=== PATIENT | male | born 1960 | race Caucasian/White ===

== ENCOUNTER 2020-04-02 11:04 | Outpatient (CLI) | payer OTHER, SELFPAY ==
--- NOTE | 2020-04-02 10:19 | DI.RAD_ITS ---
EXAM: XR HIP RT COMPLETE AP PELVIS CLINICAL HISTORY: right hip pain TECHNIQUE: COMPARISON: CR LEFT HIP COMPLETE POST REDUC from 04/14/2014 FINDINGS: Two views were obtained. The cartilaginous joint spaces of the hips may be minimally narrowed bilate rally. There is slight subchondral sclerosis of the superior acetabula E bilaterally and there is mi nimal marginal osteophyte [place] of the acetabula. The femoral heads are normal in appearance . IMPRESSION: Mild DJD both hips. No other specific findings RADIATION DOSE DELIVERED: Total DLP
== END 2020-04-02 11:24 ==
PROVIDERS: PCP Family Medicine; Referring Provider Family Medicine; Visit Provider Physician Assistant
DX: M16.0 Bilateral primary osteoarthritis of hip (principal)
CPT/HCPCS: 73502

== ENCOUNTER 2021-02-24 03:07 | Outpatient (CLI) | payer OTHER, SELFPAY ==
[2021-02-24 11:05] LABS: Source Nasal/Nares
[2021-02-24 13:11] LABS: COVID-19 PCR Negative (Negative)
== END 2021-02-24 03:08 | disposition home or self-care (01) ==
LOC: LBO 03:07
PROVIDERS: PCP Family Medicine; Visit Provider Surgery
DX: Z20.822 Contact with and (suspected) exposure to COVID-19 (principal)
CPT/HCPCS: 87635

== ENCOUNTER 2021-02-26 07:08 | Day surgery (SDC) | payer OTHER, SELFPAY ==
--- NOTE | 2021-02-25 15:53 | W.COLOREPORT ---
Colonoscopy Report Date of procedure: 02/26/21 Pre-op diagnosis general: crc screen Post-op diagnosis procedure note: same Surgeon: Jenelle Iyer Anesthesia Type: General:No Airway Estimated blood loss (mL): 0 Pathology: none sent Complications: None Disposition: same day Prep: Miralax/Dulcolax Retraction Time: 7 Procedure Description: After informed consent was obtained the patient was taken to the procedure room and placed in a left decubitous position. Monitors were applied and a time out was done. The patients name, date of , procedure, allergies to medications and metal in their body was reviewed. The patient was then sedated. Once sedated and comfortable a rectal exam was done. External exam was normal. Internal exam revealed a normal sphincter tone and no palpable masses. The scope was then introduced and retrofelexed. No internal hemorrhoids were identified. The scope was then advanced to the cecum w/out difficulty. The TI and appendiceal orifice were identified. The prep was good. The scope was then slowly retracted over 7 minutes back into the rectum. There are no polyps, AVMs, or diverticula visualized today. This is an essentially normal exam today. The scope was removed and the patient was woken up and taken back to Same day surgery in stable condition. The patient tolerated the procedure well and there were no immediate complications. Follow up: The patient should follow up in 10 years unless they develop changes in bowel habits or other new gastrointestinal complaints.
--- NOTE | 2021-02-25 15:54 | PDOC.DSDIS_ITS ---
Discharge Plan Disposition Patient Disposition: HOME Condition: Stable Discharge Details Reason For Visit: colon scope Attending Provider: Jenelle Iyer Primary Care Provider: Rene Gregorio Home Meds and New Rx's Prescriptions: Continued lisinopril 20 mg tablet 20 mg PO DAILY RF: 0 diclofenac sodium 75 mg tablet,delayed release (DR/EC) 75 mg PO BID RF: 0 simvastatin 20 mg tablet 20 mg PO DAILY RF: 0 sildenafil [Viagra] 50 mg tablet 50 mg PO DAILY PRNRF: 0 aspirin [Aspir-81] 81 MG tablet,delayed release (DR/EC) 81 mg PO DAILY RF: 0 metoprolol tartrate 100 MG tablet 100 mg PO DAILY RF: 0 Discontinued polyethylene glycol 3350 17 gram/dose powder 238 g PO ONCE Qty: 238 RF: 0 bisacodyl [Dulcolax (bisacodyl)] 5 mg tablet,delayed release (DR/EC) 5 mg PO ONCE Qty: 4 RF: 0 Discharge Instructions Additional Instructions: DSU Colonoscopy Post- Op Instructions Instructions for Everyone who is given Anesthesia: For your safety, please do the following for the next twenty-four (24) hours: *Do Not operate a motor vehicle (car, truck, motorcycle, etc.) *Do Not drink alcoholic beverages or use any recreational drugs for the first 24 hours or while taking pain medications. The medications in your body may have a reaction that can be dangerous. *Do Not make any important decisions or sign any important papers. Findings: normal Follow up:repeat in 10 yrs time, unless you develop changes in bowel habits, rectal bleeding that lasts for more than 2 weeks, unexplained weight loss or other new gastrointestinal complaints. 1. No lifting over 20 pounds or strenuous activity for the first 24 hours after your procedure. After 24 hours there are no restrictions on your activity but you may feel fatigued for a few days. 2. After you arrive home you may have a light meal and return to your normal diet as you can tolerate it without feeling sick to your stomach. 3. You may have a bloated, gaseous feeling in your belly (abdomen) after a colonoscopy. Passing gas and belching will help. Walking or lying down on your left side with your knees flexed may relieve the discomfort. Call the office at [phone] (Office) or [phone] (Hospital) right away if you notice any of the following: a.Vomiting of blood or ?coffee ground stools?. b.Rectal bleeding 1Tbsp, blood clots or continuous bleeding. c.Severe belly (abdominal) pain. d.A hard distended belly (abdomen) and an inability to pass gas. 4. Please don?t expect to have a normal BM (bowel movement) for 2-3 days after your procedure. 5. If there are questions regarding the findings of your procedure, please contact your doctor 6. If you are unable to contact your doctor with a problem, contact the hospital at [phone]. 7. Continue all your regular medications unless directed otherwise. I understand the above instructions and have no questions. Signature of Patient or Adult Escort Name of Responsible Adult Escort Signature of Nurse Date/Time Activity:: see above Diet:: see above Discharge Orders Discharge Orders: Discharge Order (Routine); Ordered 02/25/21 Ordered By: Jenelle Iyer
[2021-02-26 07:20] VITALS: BP 171/107; PULSE 97; RESP 18; TEMP 36.1; O2SAT 94
--- NOTE | 2021-02-26 07:45 | ANES.PREOP_ITS ---
General Info Date of Service Date Performed: 02/26/21 Height: 5 ft 10 in Weight: 118.841 kg Body Mass Index (BMI): 37.5 Surgical Procedure: Operation Date: 02/26/21 08:35 Proposed Procedures Side Surgeon beverley Iyer, Meds Allergies and Home Medications Allergies Allergy/AdvReac Type Severity Reaction Status Date / Time codeine [Codeine] Allergy Intermediate hallucinate Unverified 02/24/21 14:10 s Home Medication Medication Instructions Recorded aspirin [Aspir 81] 81 mg PO DAILY 08/03/12 metoprolol tartrate 100 mg PO DAILY 08/03/12 diclofenac sodium 75 mg 75 mg PO BID 10/14/20 tablet,delayed release lisinopril 20 mg tablet 20 mg PO DAILY 10/14/20 sildenafil 50 mg tablet 50 mg PO DAILY PRN 10/14/20 simvastatin 20 mg tablet 20 mg PO DAILY 10/14/20 bisacodyl 5 mg tablet,delayed 5 mg PO ONCE #4 tab 02/12/21 release polyethylene glycol 3350 17 238 g PO ONCE #238 g 02/12/21 gram/dose oral powder Current Visit Medications: Current Medications Generic Name Dose Route Start Last Admin Trade Name Freq PRN Reason Stop Dose Admin Hyoscyamine Sulfate 0.125 mg 02/25/21 10:56 Hyoscyamine 0.125 Mg Sl/Oral/Chew SL DIRECTED PRN Ringer's Solution 1,000 mls @ 80 mls/hr 02/26/21 06:00 IV 03/27/21 23:59 INFUSION [facility] IV Miscellaneous Supplies 1 each 02/26/21 06:00 Iv Access IV 03/27/21 23:59 DIRECTED RENEE Ondansetron HCl 4 mg 02/25/21 10:56 Ondansetron 4 Mg/2 Ml Vial IVP Q4H PRN PRN Nausea / Vomiting Sodium Chloride 0 ml 02/26/21 06:00 Normal Saline Flush 10 Ml Syr IV 03/27/21 23:59 PRN PRN Sodium Chloride 0 ml 02/26/21 06:00 Normal Saline 10 Ml Vial IJ 03/27/21 23:59 DIRECTED PRN Sterile Water 0 ml 02/26/21 06:00 Water,Injection,Sterile 10 Ml Vial IJ 03/27/21 23:59 DIRECTED PRN PFSH Active Problems Active Problems: Problem Status Onset Code 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 Medical History Medical History Bilateral tinnitus Depressive disorder 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 Hyperlipidemia Impotence Obesity Polymyalgia rheumatica Primary gout Secondary polycythemia Surgical History Surgical History (Updated 02/26/21 @ 07:33 by Tiffanie Yang) Hx of colonoscopy Tobacco Smoking/Tobacco Use Status: Never Alcohol Alcohol Intake: current Alcohol intake frequency: a few times a week Alcohol type: beer and hard liquor Substance Use Substance use: Never Substance use type: does not use Vital Signs and Lab Results Vital Signs Most Recent Vital Signs in EMR: Most Recent Vital Signs Temp Pulse Resp BP Pulse Ox 36.1 C L 97 H 18 171/107 H 94 02/26/21 07:20 02/26/21 07:20 02/26/21 07:20 02/26/21 07:20 02/26/21 07:20 Lab Results Blood Type / Crossmatch: No Data to Display Complete Blood Count: No Data to Display Complete Metabolic Panel: No Data to Display Liver Function Panel: No Data to Display Coagulation Panel: No Data to Display Cardiac Panel: No Data to Display Arterial Blood Gas: No Data to Display Venous Blood Gas: No Data to Display Pancreas Panel: No Data to Display Thyroid Panel: No Data to Display Infectious Disease: Coronavirus (COVID-19)(PCR) Negative (Negative) 02/24/21 08:46 02/24/21 Coronavirus 2019 Source Nasal/Nares 02/24/21 08:46 02/24/21 Blood Cultures: No Data to Display Toxicology Panel: No Data to Display Imaging and Studies Imaging and Studies Stress Test Summary: COMMENTS/RECOMMENDATION: Exercise capacity was fair (7METS) Hypertensive prior to stress. Hypertensive blood pressure response during stress. Hypertensive during recovery returning to pretest readings. Normal heart rate response to stress. Normal heart rate recovery. [place] Treadmill Score 6. Low risk. IMPRESSION: Negative for ischemia after maximal exercise. Wyatt Blsis M.D., Ph.D. CHANTELL/jignesh 04/30/2014 Anesthesia Assessment and Plan Anesthesia History Personal History: No History of Anesthesia Complications Family History: No Family History of Anesthesia Complications Exercise Tolerance Exercise Tolerance: Metabolic Equivalents>4 Pertinent Negatives Pertinent Negatives: No Symptoms of GERD, No Major Cardiovascular Symptoms or Complaints, No Major Pulmonary Symptoms or Complaints and No History of CVA/TIA Cardiac & Pulmonary Exam Cardiac Exam: Normal S1/S2 Heart Sounds Pulmonary Exam: Clear Bilateral Breath Sounds Airway Exam Known Difficult Airway: No Mallampati Class: 4 Mouth Opening: Narrow (< 3cm) Thyromental Distance: Less than 3 cm Neck Range of Motion: Full ROM Neck Circumference: Thick Teeth Condition: Normal Dentition Airway Comments: Top front teeth chipped, high angle narrow palate ASA Classification ASA Score: ASA 2 Emergency Case?: No NPO Status NPO Status: NPO Clears >2 hours, Solids >8 hours Anesthesia Plan Resuscitation Status: Full Code Anesthesia Technique: General Anesthesia Airway Planned: Natural Airway Monitors Used: Standard Monitors
[2021-02-26 07:46] VITALS: BMI 37.5
[2021-02-26] MEDS: Lactated Ringers 1,000 ML 80 ML IV (08:12)
[2021-02-26 09:08] VITALS: BP 147/100; PULSE 89; RESP 16; TEMP 36.4; O2SAT 96
--- NOTE | 2021-02-26 09:15 | W.ANESPOSTOP ---
Postoperative Evaluation Date, Time and Location Date Performed: 02/26/21 Time Performed: 09:15 Patient Location: Day Surgery Unit Vital Signs Most Recent Imported Vital Signs: Most Recent Vital Signs Temp Pulse Resp BP Pulse Ox 36.4 C L 89 16 147/100 H 96 02/26/21 09:08 02/26/21 09:08 02/26/21 09:08 02/26/21 09:08 02/26/21 09:08 Pain Score Most Recent Pain Score: Most Recent Pain Score Pain Level 0 02/26/21 09:08 Assessment Mental Status: Awake (Alert & Oriented to Patient Baseline) Airway and Respiratory Function: Patent airway with normal (patient baseline) respiratory exam Cardiovascular Function: Hemodynamically Stable Hydration Status: Adequately Hydrated Nausea & Vomiting: No Nausea or Vomiting Pain: Pt. Denies Any Pain Peripheral Nerve Block: Patient did not receive a nerve block
[2021-02-26 09:28] VITALS: BP 158/104; PULSE 74; RESP 18; O2SAT 99
[2021-02-26 09:42] VITALS: BP 158/103; PULSE 69; RESP 16; TEMP 36.5; O2SAT 98
== END 2021-02-26 10:05 | disposition home or self-care (01) ==
PROVIDERS: PCP Family Medicine; Visit Provider Surgery
PROC: 0DJD8ZZ Inspection of Lower Intestinal Tract, Via Natural or Artificial Opening Endoscopic (ICD-10-PCS; CPT 45378; principal; 2021-02-26 08:30)
DX: Z12.11 Encounter for screening for malignant neoplasm of colon (principal); E78.5 Hyperlipidemia, unspecified; M10.9 Gout, unspecified; F32.A Depression, unspecified
CPT/HCPCS: 45378; J2001

== ENCOUNTER 2021-06-03 10:55 | Outpatient (CLI) | payer OTHER, SELFPAY ==
--- NOTE | 2021-06-03 10:15 | DI.RAD_ITS ---
Exam(s) XR SHOULDER LT COMPLETE 2+V EXAM: XR SHOULDER LT COMPLETE 2+V CLINICAL HISTORY: left shoulder pain. TECHNIQUE: 2D digital imaging was performed. COMPARISON: No exams were available for comparison FINDINGS: There is no evidence of fracture or dislocation. There are advanced osteoarthritic degenerative holden ges in the glenohumeral joint with opposing osteophytes on the inferior articular surfaces of humeral head and osseous glenoid. Size of the osteophytes of this size is larger than size of the osteophyt e on the inferior articular surface of the opposite-right humeral head. The subacromial space is not diminished and there are no abnormal calcifications therein. Mild degen erative changes in the AC joint. Clavicle appears intact. Bone density normal. No osseous lesions. IMPRESSION: Advanced degenerative changes-osteophytes in the left glenohumeral joint, as described above DATA REPOSITORY: RADIATION DOSE DELIVERED:
--- NOTE | 2021-06-03 10:15 | DI.RAD_ITS ---
Exam(s) XR SHOULDER RT COMPLETE 2+V EXAM: XR SHOULDER RT COMPLETE 2+V CLINICAL HISTORY: right shoulder pain. TECHNIQUE: 2D digital imaging was performed. COMPARISON: CR XR SHOULDER LT COMPLETE 2+V from 06/03/2021 FINDINGS: Is no evidence of fracture or dislocation of glenohumeral joint. However, there are significant dege nerative changes with a moderate size osteophyte on the inferior articular surface of the humeral hea d. Subacromial space height is normal. No calcifications therein. Degenerative changes in the AC j oint noted. No osseous lesions. No evidence of os acromiale IMPRESSION: Degenerative changes as described above. DATA REPOSITORY: RADIATION DOSE DELIVERED:
== END 2021-06-03 10:56 | disposition home or self-care (01) ==
LOC: DIORS 10:55
PROVIDERS: PCP Neuromusculoskeletal Medicine & OMM; Referring Provider Neuromusculoskeletal Medicine & OMM; Visit Provider Physician Assistant
DX: M25.511 Pain in right shoulder (principal); M19.011 Primary osteoarthritis, right shoulder; M25.512 Pain in left shoulder; M19.012 Primary osteoarthritis, left shoulder; M25.711 Osteophyte, right shoulder; M25.712 Osteophyte, left shoulder
CPT/HCPCS: 73030

== ENCOUNTER 2021-07-08 01:47 | Outpatient (CLI) | payer OTHER, SELFPAY ==
--- NOTE | 2021-07-08 08:15 | DI.RAD_ITS ---
Exam(s) RF JOINT INJECTION FLUORO GUID EXAM: RF JOINT INJECTION FLUORO GUID CLINICAL HISTORY: L SHOULDER INJ UNDER FLUORO,lt shoulder pain, m25.512, TECHNIQUE: 2D and realtime digital imaging was performed. COMPARISON: No exams were available for comparison FINDINGS: Fluoroscopy utilized by Dr. Huerta during shoulder injection. Hard copy shows intra-articular inje ction. IMPRESSION: RADIATION DOSE DELIVERED: [place]=1.88 mGy Total DLP
--- NOTE | 2021-07-08 08:15 | DI.RAD_ITS ---
Exam(s) RF JOINT INJECTION FLUORO GUID EXAM: RF JOINT INJECTION FLUORO GUID CLINICAL HISTORY: R SHOULDER INJ UNDER FLUORO,rt shoulder pain, m25.511 TECHNIQUE: 2D and realtime digital imaging was performed. COMPARISON: No exams were available for comparison FINDINGS: Fluoroscopy was utilized by Dr. Huerta during right shoulder injection. Hard copy shows intra-shun cular injection. IMPRESSION: RADIATION DOSE DELIVERED: [place]=5.49 mGy Total DLP
--- NOTE | 2021-07-08 14:45 | W.PROCNOTE ---
Procedure Note Date of procedure: 07/08/21 Procedure: Bilateral Shoulder Injection Surgeon/Proceduralist/Physician: Robert Huerta Procedure Diagnosis: Bilateral Shoulder Arthritis Procedure Indications: Taz has had persistent pain of both shoulders. Noninvasive measures have been tried. To serve as both diagnostic and therapeutic, an injection under fluoroscopy was recommended. I had discussed the risks of the procedure and the patient elected to proceed. Procedure Description: Taz was greeted in the flouroscopy room. The patient was then placed in the supine position on the fluoroscopy table. The RIGHT shoulder was then prepped with Chloraprep. The anterior injection starting point was identiifed by bony landmarks and fluoroscopy. The skin and soft tissue in the tract of the injection was anesthetized with 1% Lidocaine. A spinal needle was then inserted deep into the shoulder joint at the level of the recess between the glenoid and superior humeral head. A small amount of Omnipaque solution was injected to confirm intraarticular placement. Once confirmed, the shoulder was injected with 5cc of 0.5% Bupivicaine and 80mg of Depo-Medrol. A bandaid was placed on the injection site. The patient tolerated the procedure well and noted improvement in pre-injection pain. The LEFT shoulder was then prepped with Chloraprep. The anterior injection starting point was identiifed by bony landmarks and fluoroscopy. The skin and soft tissue in the tract of the injection was anesthetized with 1% Lidocaine. A spinal needle was then inserted deep into the shoulder joint at the level of the recess between the glenoid and superior humeral head. A small amount of Omnipaque solution was injected to confirm intraarticular placement. Once confirmed, the shoulder was injected with 5cc of 0.5% Bupivicaine and 80mg of Depo-Medrol. A bandaid was placed on the injection site. The patient tolerated the procedure well and noted improvement in pre-injection pain.
[2021-07-08] MEDS: Omnipaque 300 MG/ML 10 ML BTL 2.5 ML IJ (14:57)
[2021-07-08] MEDS: Bupivacaine 0.5% Pres-Free 10 ML VIAL 5 ML IJ (14:58)
[2021-07-08] MEDS: methylPREDNISolone ACETATE 80 MG/ML VIAL 160 MG IM (14:59)
== END 2021-07-08 02:07 ==
PROVIDERS: PCP Neuromusculoskeletal Medicine & OMM; Visit Provider Student in an Organized Health Care Education/Training Program
DX: M25.512 Pain in left shoulder (principal); M25.511 Pain in right shoulder
CPT/HCPCS: 20610 ×2; 77002; J1040

== ENCOUNTER 2021-07-09 01:23 | Outpatient (CLI) | payer OTHER, SELFPAY ==
[2021-07-09 11:39] LABS: Source Nasal/Nares
[2021-07-09 13:45] LABS: COVID-19 PCR Negative (Negative)
== END 2021-07-09 01:24 | disposition home or self-care (01) ==
LOC: LBO 01:23
PROVIDERS: PCP Neuromusculoskeletal Medicine & OMM; Visit Provider Radiology Vascular & Interventional Radiology
DX: Z20.822 Contact with and (suspected) exposure to COVID-19 (principal); Z01.812 Encounter for preprocedural laboratory examination
CPT/HCPCS: 87635

== ENCOUNTER 2021-11-02 15:01 | Observation (INO) | payer OTHER, SELFPAY ==
[2021-11-02] VITALS (7 sets, daily range): BP systolic 151–165; BP diastolic 87–120; PULSE 64–97; RESP 16–19; TEMP 36.4–36.6; O2SAT 95–96
--- NOTE | 2021-11-02 15:15 | RT.EKG_ITS ---
APPROVED REPORT Exam: Resting ECG Reason for Exam: lightheaded Patient Location: E HR:88 bpm ECG Measurements Heart Rate 88 AXIS SD 161 P 31 QRSd 81 QRS 4 QT 353 T 13 QTc 428 Conclusion Sinus rhythm...normal P axis, V-rate 60- 99 Anterior infarct, old...Q >40mS, abnormal ST-T, V2-V5 Borderline ST elevation, lateral leads...ST >0.06mV, I aVL V5 V6. Sinus. No STEMI. I have reviewed and interpreted ECG and agree with software generated interpretation.
--- NOTE | 2021-11-02 15:30 | DI.US_ITS ---
Exam(s) US LOWER EXTREMITY VENOUS LT EXAM: US LOWER EXTREMITY VENOUS LT CLINICAL HISTORY: leg pain and swelling TECHNIQUE: Left lower extremity venous ultrasound performed using grayscale, color-flow, and spectra l Doppler analysis. COMPARISON: No exams were available for comparison FINDINGS: The left common femoral, femoral and posterior tibial veins demonstrate normal compressibility, augme ntation, and color Doppler. There is hypoechoic thrombus seen extending from the peroneal veins into the popliteal vein. It measures 30 cm in length. There is thrombus seen in the greater saphenous v ein measuring approximately 25 cm long. It is 3.3 cm distal to the saphenofemoral junction. The sap henofemoral junction is unremarkable. There is no evidence of a Avalos cyst. The soft tissues are un remarkable. IMPRESSION: 1. DVT from the popliteal vein into the peroneal veins. 2. Superficial thrombophlebitis. 3. Results of this exam have been verbally communicated with provider. DATA REPOSITORY:
[2021-11-02 17:01] LABS: Abs Immature Grans 0.17 10^3/uL (0.0-0.06); Absolute Basophil Count 0.07 10^3/uL (0.0-0.2); Absolute Eosinophil Count 0.01 10^3/uL (0.0-0.7); Absolute Lymphocyte Count 0.62 10^3/uL (1.2-3.4); Absolute Monocyte Count 0.38 10^3/uL (0.1-0.8); Basophils % 0.6; Eosinophils % 0.1; HCT 53.5 % (40.0-50.0); HGB 18.6 g/dL (13.5-17.5); Immature Grans % 1.6; Lymphocytes % 5.7; MCH 32.7 pg (27.0-33.0); MCHC 34.8 % (32.0-36.0); MCV 94 fL (80-95); MPV 9.4 fL (8.0-11.0); Monocytes % 3.5; Neutrophils % 88.5; Nucleated RBC 0.2 % (0.0-0.3); Platelet Count 202 10^3/uL (130-400); RBC 5.69 10^6/uL (4.36-5.78); RDW 14.2 % (11.8-14.1); RDW-SD 49.1 fL; WBC 10.85 10^3/uL (4.4-10.8)
[2021-11-02 17:29] LABS: ALT 73 U/L (16-63); AST 17 U/L (15-37); Albumin 3.2 g/dL (3.4-5.0); Alkaline Phosphatase 40 U/L (46-116); Anion Gap 10.8 mmol/L (3-11); BUN 20 mg/dL (7-18); CO2 23.2 mmol/L (21.0-32.0); CREATININE 0.9 mg/dL (0.70-1.30); Calcium 8.7 mg/dL (8.5-10.1); Chloride 104 mmol/L (98-107); Glucose 126 mg/dL (74-106); Magnesium 1.9 mg/dL (1.8-2.4); NT-proBNP 105 pg/mL (<300); Potassium 4.2 mmol/L (3.5-5.1); Sodium 138 mmol/L (136-145); Total Protein 6.6 g/dL (6.4-8.2); Troponin I < 50 ng/L (<or=60)
--- NOTE | 2021-11-02 17:30 | DI.CT_ITS ---
Exam(s) CT CHEST PE CTA EXAM: CT CHEST PE CTA CLINICAL HISTORY: sob, DVT+ and elevated ddimer. TECHNIQUE: Imaging Protocol: CT angiography of the chest was performed using pulmonary embolus yan col. Multi planar reconstructions were performed. CONTRAST MATERIAL: Intravenous: Omnipaque 350 Contrast volume: 100 cc COMPARISON: No exams were available for comparison FINDINGS: CHEST: PULMONARY ARTERIES: This study is positive for the presence of acute pulmonary emboli.There intralumi nal filling defects within the pulmonary artery tree in the right lower lobe segmental vessels. No o bvious involvement of right upper lobe vessels nor of right middle lobe vessels. The opposite-left l barbara are also intraluminal filling defects in the segmental left lower lobe vessels. LUNGS: There are no infiltrates nor evidence of pulmonary infarction.. There are no pleural effusions . MEDIASTINUM: There is no hilar nor mediastinal adenopathy. Visualized thyroid unremarkable. CARDIAC: Heart size is upper normal. There is no pericardial effusion.Caliber of the thoracic aorta is within normal limits. There is no significant shift of the interventricular septum. PARTIALLY VISUALIZED UPPERMOST ABDOMEN: No contrast reflux into the intrahepatic IVC. No adrenal fin dings. Spleen size normal. OSSEOUS: No significant osseous lesions.. IMPRESSION: 1. Positive study for bilateral lower lobe acute pulmonary emboli..No evidence of pulmonary infarctio n at this time. No pleural effusions. No infiltrates. 2. No evidence of obvious right heart ventricular strain 3. No evidence of aortic dissection. Study 1st read by [facility]. RADIATION DOSE DELIVERED: 640.37mGy.cm Total DLP DATA REPOSITORY: All CT scans at this facility are submitted to the National Radiology Data Registry (NRDR) Dose Index Registry (DIR) with the [employer] ([employer]). RADIATION OPTIMIZATION: All CT scans at this facility use at least one of these dose optimization te chniques: automated exposure control; mA and/or kV adjustment per patient size (includes targeted exa ms where dose is matched to clinical indication); or iterative reconstruction.
[2021-11-02 17:31] LABS: D-Dimer 2064 ng/mlFEU (<500)
[2021-11-02] MEDS: Omnipaque 350 MG/ML 100 ML BTL IV (17:52)
--- NOTE | 2021-11-02 18:42 | DI.VRAD_ITS ---
PROCEDURE INFORMATION: Exam: CTA Chest With Contrast Exam date and time: 11/02/2021 5:54 PM Age: 61 years old Clinical indication: SOB, DVT+ and elevated d-dimer TECHNIQUE: Imaging protocol: Computed tomographic angiography of the chest with contrast. 3D rendering (Not supervised by radiologist): MIP and/or 3D reconstructed images were created by the technologist. Radiation optimization: All CT scans at this facility use at least one of these dose optimization techniques: automated exposure control; mA and/or kV adjustment per patient size (includes targeted exams where dose is matched to clinical indication); or iterative reconstruction. Contrast material: OMNIPAQUE 350; Contrast volume: 100 ml; Contrast route: INTRAVENOUS (IV); COMPARISON: CR XR SHOULDER RT COMPLETE 2+V 06/03/2021 10:55 AM FINDINGS: Pulmonary arteries: Focal areas of decreased density / intraluminal filling defects are present within the pulmonary arterial system bilaterally consistent with pulmonary emboli. No saddle embolism. Aorta: Normal caliber thoracic aorta without aneurysm or dissection. Lungs: No alveolar or ground glass infiltrate. Evidence of old granulomatous disease. Pleural spaces: No pleural fluid collection. No pneumothorax. Heart: No associated right ventricular strain (RV/LV ratio = 0.9). Coronary artery calcification. No pericardial effusion. Lymph nodes: No enlarged lymph nodes. Bones/joints: No acute fracture. Soft tissues: Unremarkable. IMPRESSION: 1. CT examination POSITIVE for bilateral acute pulmonary embolism. No saddle embolism. 2. No associated right ventricular strain (RV/LV ratio = 0.9). 3. No pulmonary infiltrate. 4. THIS REPORT CONTAINS FINDINGS THAT MAY BE CRITICAL TO PATIENT CARE. The findings were verbally communicated via telephone conference with REYMUNDO ORTIZ at 6:39 PM EDT on 11/02/2021. The findings were acknowledged and understood. Dictated and Authenticated by: Saulo Davenport MD. Ordering:JUVENTINO Henning MD
[2021-11-02 19:06] LABS: Source Nasal/Nares
--- NOTE | 2021-11-02 19:27 | ED.GENADUL_ITS ---
Discharge Plan Disposition Patient Disposition: [facility] INPATIENT Condition: Stable Discharge Details Clinical Impression: Bilateral pulmonary embolism, DVT (deep venous thrombosis) Admit Date/Time: 11/02/21 19:48 Admit Provider: Rene Gregorio Attending Provider: Rene Gregorio Primary Care Provider: Victor M Hernandez ED Provider: Juvencio Ortiz Discharge Data Discharge Date/Time-TO BE ENTERED AT DEPARTURE: 11/02/21 20:38 Medical Decision Making Patient presenting to the emergency department for chief complaint of left leg pain. Patient reports this began 2 weeks ago and over the last couple days has started having some increased pain in his thighs. Patient states some shortness of breath with activity but denies chest pain. Patient has felt lightheaded intermittently for the last 3 months but has not been worked up for that. Physical exam shows bilateral 1+ pitting edema with tenderness to the left proximal calf and medial thigh. Exam is otherwise unremarkable. Patient is not hypoxic or hypotensive. We will plan on performing a DVT study of the left lower extremity and performing labs. Review of DVT study shows significant thrombus of the left lower extremity. Labs reviewed and show a mild leukocytosis and elevated hemoglobin which patient states he has seen hematology for in the past. Patient's D-dimer is significantly elevated at 2064 and CMP shows mildly elevated BUN, glucose of 126, ALT of 73 and alk phos of 40 with negative troponin. I am concerned with patient being positive for DVT and having some shortness of breath that has been longer in duration that patient may have also of PEs. Patient is agreeable to CT imaging of the chest. Review of CT imaging and speaking with radiologist patient has bilateral pulmonary embolism with no saddle emboli and no signs of right heart strain. Due to significant amount of thrombus I do feel that patient should be admitted. Called and spoke with hospitalist who after further discussion of the case and speaking with the patient patient prefers to be admitted for at least observation while starting on blood thinners. Patient started on Eliquis [facility] and treatment as needed. Imaging Data Radiologic Study: Imaging: CT Scan Radiologist's impression: IMPRESSION: 1. CT examination POSITIVE for bilateral acute pulmonary embolism. No saddle embolism. 2. No associated right ventricular strain (RV/LV ratio = 0.9). 3. No pulmonary infiltrate. 4. THIS REPORT CONTAINS FINDINGS THAT MAY BE CRITICAL TO PATIENT CARE. The findings were verbally communicated via telephone conference with JUVENCIO ORTIZ at 6:39 PM EDT on 11/02/2021. The findings were acknowledged and understood. HPI General Mode of arrival: ambulatory . Date/Time Provider Initiated Documentation: 11/02/21 15:34 . Limitations to Documentation: no limitations . Information obtained by: patient and RN notes reviewed . History of Present Illness 61 year old M presents to the emergency department with the chief complaint of left leg pain , described as moderate, with intensity rated at 8. Quality is described as aching, and is localized to the left and lower extremity. Patient reports no radiation. Patient started experiencing this week(s) (2) and it has been constant. No relieving factors improve symptom(s), No exacerbating factors reported . Patient notes malaise and shortness of breath. Patient did receive the following treatments prior to arrival, none Related Data Home Medications Medication Instructions Recorded Confirmed aspirin 81 mg tablet,delayed 81 mg PO DAILY 08/03/12 11/02/21 release (Aspir-) metoprolol tartrate 100 mg tablet 100 mg PO DAILY 08/03/12 11/02/21 lisinopril 20 mg tablet 20 mg PO DAILY 10/14/20 11/02/21 sildenafil 50 mg tablet (Viagra) 50 mg PO DAILY PRN 10/14/20 11/02/21 simvastatin 20 mg tablet 20 mg PO DAILY 10/14/20 11/02/21 amlodipine 5 mg tablet 10 mg PO DAILY 04/13/21 11/02/21 mycophenolate mofetil 250 mg 2 cap PO 2XD 11/02/21 11/02/21 capsule prednisone 20 mg tablet 1 tab PO 1XD 11/02/21 11/02/21 apixaban 5 mg tablet (Eliquis) 10 mg PO BID #60 tabs 11/03/21 metoprolol succinate 50 mg 50 mg PO DAILY #30 tabs 11/03/21 tablet,extended release 24 hr (Toprol XL) Previous Rx's Medication Instructions Recorded apixaban 5 mg tablet (Eliquis) 10 mg PO BID #60 tabs 11/03/21 metoprolol succinate 50 mg 50 mg PO DAILY #30 tabs 11/03/21 tablet,extended release 24 hr (Toprol XL) Allergies Allergy/AdvReac Type Severity Reaction Status Date / Time codeine [Codeine] AdvReac Intermediate hallucinate Unverified 11/02/21 15:17 s General Stated Complaint: Orthopedic JO: 4 Review of Systems Constitutional Constitutional: Denies chills, Denies fever(s) and Reports malaise Cardiovascular Cardiovascular: Denies chest pain, Denies syncope, Denies rapid heart rate, Reports pedal edema, Denies irregular heart rhythm, Reports lightheadedness and Reports dyspnea Respiratory Respiratory: Denies cough and Reports dyspnea Gastrointestinal Gastrointestinal: Denies abdominal pain Musculoskeletal Musculoskeletal: Reports as per HPI, Denies arthralgias, Denies joint swelling and Reports muscle cramps Integumentary/Breasts Skin/Breast: Denies erythema, Denies rash and Denies skin swelling Neurologic Neurologic: Denies syncope and Denies paresthesias PFSH All Active Problems (Updated 11/03/21 @ 12:49 by Rene Gregorio) Bilateral pulmonary embolism (Acute) DVT (deep venous thrombosis) (Acute) Arthritis of right glenohumeral joint (Acute) Arthritis of left glenohumeral joint (Acute) Femoroacetabular impingement of right hip (Acute) Femoroacetabular impingement of left hip (Acute) Medical History Bilateral tinnitus Depressive disorder Hyperglycemia Hyperlipidemia Impotence Normal colonoscopy Obesity Polymyalgia rheumatica Primary gout Secondary polycythemia Spinal stenosis of lumbar region Surgical History Hx of colonoscopy (~02/26/21) Social History Smoking/Tobacco Use Status: Never Smoking risk assessment performed?: Yes Alcohol Intake: current Alcohol Intake frequency: a few times a week Alcohol type: beer and hard liquor Drug use: Never Substance use type: does not use Do you feel safe at home: Yes Do you feel safe in your relationship?: Yes Exam Const General: cooperative, healthy appearing, comfortable, no acute distress, not diaphoretic and not ill appearing Nutritional Appearance: average body habitus Orientation: alert, awake and oriented x3 Limitations: mental status not altered Neck Neck: normal visual inspection, full ROM, trachea midline, supple and no anterior neck swelling Carotids: normal carotid upstroke Resp Effort & Inspection: normal respiratory effort and able to speak in complete sentences Auscultation: clear to auscultation bilaterally Cardio Jugular venous pressure: no JVD Palpation: normal PMI Rate: regular rate Rhythm: regular rhythm Heart Sounds: S1 normal, S2 normal, no click, no gallops, no murmurs and no rubs Bruits: no abdominal aortic bruits and no carotid bruits Pulses: radial pulses present bilaterally 2+ Skin General skin exam: no rashes or lesions noted Neuro General: patient alert, patient awake, patient oriented x3, tone normal and moves all extremities Extrem General: capillary refill normal, normal exam except as noted and pedal edema bilaterally pitting and 1+ Left lower extremity: hip/thigh Details: tenderness Location: of the mid upper leg Location: medially and lower leg Details: tenderness Location: of the posterior calf Course Vital Signs Vital signs: Vital Signs Temperature 36.4 C L 11/02/21 15:12 Pulse 97 H 11/02/21 15:12 Respiratory Rate 19 11/02/21 15:12 Pulse Oximetry 96 11/02/21 15:12 Temperature 36.4 C L 11/02/21 17:11 Temperature Source Tympanic 11/02/21 15:12 Pulse 78 11/02/21 17:11 Respiratory Rate 16 11/02/21 17:11 Respiratory Effort 11/02/21 17:08 Blood Pressure 155/97 H 11/02/21 17:16 Blood Pressure Position Sitting 11/02/21 15:12 Pulse Oximetry 95 11/02/21 17:11 Oxygen Delivery Method Room Air 11/02/21 17:11 Oxygen Flow Rate 0 11/02/21 17:11 Pain Level 0 11/02/21 17:11 Lab/Test Results Lab/Test Results: Laboratory Tests Range/Units 11/02/21 11/02/21 11/02/21 16:46 16:46 16:46 WBC (4.4-10.8) 10^3/uL 10.85 H RBC (4.36-5.78) 10^6/uL 5.69 Hgb (13.5-17.5) g/dL 18.6 H Hct (40.0-50.0) % 53.5 H MCV (80-95) fL 94 MCH (27.0-33.0) pg 32.7 MCHC (32.0-36.0) % 34.8 RDW (11.8-14.1) % 14.2 H Plt Count (130-400) 10^3/uL 202 MPV (8.0-11.0) fL 9.4 Immature Gran % 1.6 Neutrophils % 88.5 Lymphocytes % 5.7 Monocytes % 3.5 Eosinophils % 0.1 Basophils % 0.6 Nucleated RBC % (0.0-0.3) % 0.2 Absolute Neutrophils (1.2-6.7) 10^3/uL 9.60 H Absolute Lymphocytes (1.2-3.4) 10^3/uL 0.62 L Absolute Monocytes (0.1-0.8) 10^3/uL 0.38 Absolute Eosinophils (0.0-0.7) 10^3/uL 0.01 Absolute Basophils (0.0-0.2) 10^3/uL 0.07 PT INR APTT D-Dimer (<500) ng/mlFEU 2064 H Sodium (136-145) mmol/L 138 Potassium (3.5-5.1) mmol/L 4.2 Chloride (98-107) mmol/L 104 Carbon Dioxide (21.0-32.0) mmol/L 23.2 Anion Gap (3-11) mmol/L 10.8 BUN (7-18) mg/dL 20 H Creatinine (0.70-1.30) mg/dL 0.9 Estimated GFR/1.73 m2 (mL/min/1.73m2) >= 60.00 Glucose (74-106) mg/dL 126 H Calcium (8.5-10.1) mg/dL 8.7 Magnesium (1.8-2.4) mg/dL 1.9 Total Bilirubin (0.2-1.0) mg/dL 1.0 AST (15-37) U/L 17 ALT (16-63) U/L 73 H Alkaline Phosphatase (46-116) U/L 40 L Troponin I (<or=60) ng/L < 50 NT-Pro-B Natriuret Pep (<300) pg/mL 105 Total Protein (6.4-8.2) g/dL 6.6 Albumin (3.4-5.0) g/dL 3.2 L COVID-19 Source Range/Units 11/02/21 11/02/21 18:56 19:00 WBC (4.4-10.8) 10^3/uL RBC (4.36-5.78) 10^6/uL Hgb (13.5-17.5) g/dL Hct (40.0-50.0) % MCV (80-95) fL MCH (27.0-33.0) pg MCHC (32.0-36.0) % RDW (11.8-14.1) % Plt Count (130-400) 10^3/uL MPV (8.0-11.0) fL Immature Gran % Neutrophils % Lymphocytes % Monocytes % Eosinophils % Basophils % Nucleated RBC % (0.0-0.3) % Absolute Neutrophils (1.2-6.7) 10^3/uL Absolute Lymphocytes (1.2-3.4) 10^3/uL Absolute Monocytes (0.1-0.8) 10^3/uL Absolute Eosinophils (0.0-0.7) 10^3/uL Absolute Basophils (0.0-0.2) 10^3/uL PT Cancelled INR Cancelled APTT Cancelled D-Dimer (<500) ng/mlFEU Sodium (136-145) mmol/L Potassium (3.5-5.1) mmol/L Chloride (98-107) mmol/L Carbon Dioxide (21.0-32.0) mmol/L Anion Gap (3-11) mmol/L BUN (7-18) mg/dL Creatinine (0.70-1.30) mg/dL Estimated GFR/1.73 m2 (mL/min/1.73m2) Glucose (74-106) mg/dL Calcium (8.5-10.1) mg/dL Magnesium (1.8-2.4) mg/dL Total Bilirubin (0.2-1.0) mg/dL AST (15-37) U/L ALT (16-63) U/L Alkaline Phosphatase (46-116) U/L Troponin I (<or=60) ng/L NT-Pro-B Natriuret Pep (<300) pg/mL Total Protein (6.4-8.2) g/dL Albumin (3.4-5.0) g/dL COVID-19 Source Nasal/Nares PAWSS Have you Been Recently Intoxicated or Drunk Within the Last 30 days?: No Have you Ever Experienced Previous Episodes of Alcohol Withdrawal?: No Have you ever Experienced Withdrawal Seizures?: No Have you ever Experienced Delirium Tremens(DT)s?: No Have you ever undergone Alcohol Rehabilitation Treatment (i.e, inpt ot outpatient treatment programs)?: No Have you ever Experienced Blackouts?: No Have you ever Combined Alcohol with other Downers within the last 90 days?: No Have you ever Combined Alcohol with any other Substance of Abuse during the last 90 days?: No Positive Blood Alcohol level on Presentation? [PCS.BAL]: No Evidence of Increased Autonomic Activity (i.e. HR>120, tremor, sweating, agitation, nausea)?: No Result: 0
[2021-11-02] MEDS: Apixaban 5 MG TAB 10 MG PO (19:30)
[2021-11-02 19:58] LABS: PTT Activated 21.1 sec (21.0-27.5)
[2021-11-02 20:09] LABS: COVID-19 PCR Negative (Negative)
--- NOTE | 2021-11-02 21:17 | HPE_ITS ---
Date of service: 11/02/21 Time of Service: 21:18 Assessment and Plan Assessment and plan (1) Bilateral pulmonary embolism: Start date: 11/02/21 Status: Acute Assessment and plan: This is a 61-year-old gentleman presenting with left lower extremity swelling pa in found to have left lower extremity DVT and bilateral lower pulmonary artery emboli. He was not hypoxic, did not have significant tachycardia and was not hemodynamically compromised. He was initiated on Eliquis. Patient remained stable in observation overnight he will be discharged on treatment including 1 week off Eliquis 10 mg twice daily and Eliquis 5 mg twice daily with further evaluation outpatient as an outpatient. He will follow-up with his PCP in [place], [place]. (2) DVT (deep venous thrombosis): Start date: 11/02/21 Status: Acute Assessment and plan: Treatment with Eliquis as above for PE. Further evaluation as an outpatient for risk for propagation. (3) Secondary polycythemia: Assessment and plan: This is a chronic problem which needs more aggressive treatment with phlebotomy and follow-up. (4) Obesity: Assessment and plan: Patient needs to be evaluated further for JULIO and diet with exercise should help with weight loss. Patient was encouraged not to drink alcohol daily. History of Present Illness History of Present Illness Chief Complaint: Leg edema and discomfort left calf and thigh Narrative: This is a 61-year-old male patient with a 3-month history of headache and fatigue who is obese with chronic secondary polycythemia which is not being treated. Because of his worsening left leg discomfort over the last 2 weeks the patient presented to the ED for evaluation. He was found to have a DVT in his left lower extremity was unprovoked other than being obese with polycythemia. There was no trauma. He mostly had swelling in his lower extremity on the left more than right but this is more chronic. Discomfort over the inside of his left calf and lower thigh without knee swelling was of concern. In the ED he was found to have clot burden in bilateral lung pulmonary arteries but no compromise in cardiovascular status. He was initiated on Eliquis treatment dose of 10 twice daily which will continue for 1 week and then can be converted to 5 mg twice daily long-term he should have further evaluation for provocation including family history and testing. If no provocation is found patient may be on lifelong Eliquis. I did discuss this with him. He needs to be more aggressive with weight control and treatment of his polycythemia with therapeutic phlebotomy at least. He is a full code. Past history is also significant for daily alcohol use though he does not binge drink or become intoxicated. He is overweight and has never been tested for obstructive sleep apnea which may be at play with his obesity and hypertension. This also could explain his secondary polycythemia. Review of Systems Narrative: 13 point review of systems otherwise unrevealing or stable. PFSH All Active Problems (Updated 11/03/21 @ 12:49 by Rene Gregorio) Bilateral pulmonary embolism (Acute) DVT (deep venous thrombosis) (Acute) Arthritis of right glenohumeral joint (Acute) Arthritis of left glenohumeral joint (Acute) Femoroacetabular impingement of right hip (Acute) Femoroacetabular impingement of left hip (Acute) Medical History Bilateral tinnitus Depressive disorder Hyperglycemia Hyperlipidemia Impotence Normal colonoscopy Obesity Polymyalgia rheumatica Primary gout Secondary polycythemia Spinal stenosis of lumbar region Surgical History Hx of colonoscopy (~02/26/21) Social History Smoking/Tobacco Use Status: Never Smoking risk assessment performed?: Yes Alcohol Intake: current Alcohol Intake frequency: a few times a week Alcohol type: beer and hard liquor Drug use: Never Substance use type: does not use Do you feel safe at home: Yes Do you feel safe in your relationship?: Yes Meds Allergies and Home Medications Allergies Allergy/AdvReac Type Severity Reaction Status Date / Time codeine [Codeine] AdvReac Intermediate hallucinate Unverified 11/02/21 15:17 s Home Medications Medication Instructions Recorded Confirmed Type aspirin 81 mg tablet,delayed 81 mg PO DAILY 08/03/12 11/02/21 History release (Aspir-) metoprolol tartrate 100 mg tablet 100 mg PO DAILY 08/03/12 11/02/21 History lisinopril 20 mg tablet 20 mg PO DAILY 10/14/20 11/02/21 History sildenafil 50 mg tablet (Viagra) 50 mg PO DAILY PRN 10/14/20 11/02/21 History simvastatin 20 mg tablet 20 mg PO DAILY 10/14/20 11/02/21 History amlodipine 5 mg tablet 10 mg PO DAILY 04/13/21 11/02/21 History mycophenolate mofetil 250 mg 2 cap PO 2XD 11/02/21 11/02/21 History capsule prednisone 20 mg tablet 1 tab PO 1XD 11/02/21 11/02/21 History apixaban 5 mg tablet (Eliquis) 10 mg PO BID #60 tabs 11/03/21 Rx metoprolol succinate 50 mg 50 mg PO DAILY #30 tabs 11/03/21 Rx tablet,extended release 24 hr (Toprol XL) Exam Narrative Exam Narrative: General: Patient appears older than stated age, obese, alert and oriented x3 and in no acute distress. HEENT: Normocephalic, eyes with pupils equal and reactive to light symmetrically, extraocular movement intact and sclera anicteric. Oropharynx with dry mucosa. Neck: Supple without JVD. Back: Stooped posture without CVA tenderness. Lungs: Fair aeration and clear to auscultation and percussion. Heart: Regular rate and rhythm with no appreciable murmur or gallop. Abdomen: Obese contour, soft and nontender to palpation with no palpable hepatosplenomegaly. Bowel sounds positive in all quadrants. Genitalia/rectal: Exam deferred. Extremities: 1+ edema left leg compared to trace edema right with negative Homans' sign but tenderness over the medial aspect of upper calf and lower thigh without palpable cord. No clubbing or cyanosis. Peripheral pulses intact. Skin: Darkly tanned, normal turgor, warm and dry. Neuro: Cranial nerves II through XII grossly intact, no focalizing motor deficits. Psych: No abnormal thought processes with normal mood and affect. Slightly anxious at times when discussing his new diagnosis. Remote and recent memory intact. Results Imaging Imaging Studies: CT CHEST PE CTA EXAM: ? CT CHEST PE CTA CLINICAL HISTORY: ? sob, DVT+ and elevated ddimer. ? TECHNIQUE:? Imaging Protocol: CT angiography of the chest was performed using pulmonary embolus protocol.? Multi planar reconstructions were performed. CONTRAST MATERIAL:? Intravenous: Omnipaque 350 Contrast volume: 100 cc COMPARISON:? No exams were available for comparison FINDINGS: CHEST: PULMONARY ARTERIES: This study is positive for the presence of acute pulmonary emboli.There intraluminal filling defects within the pulmonary artery tree in the right lower lobe segmental vessels.? No obvious involvement of right upper lobe vessels nor of right middle lobe vessels.? The opposite-left lung are also intraluminal filling defects in the segmental left lower lobe vessels. LUNGS: There are no infiltrates nor evidence of pulmonary infarction.. There are no pleural effusions. MEDIASTINUM: There is no hilar nor mediastinal adenopathy. Visualized thyroid unremarkable. CARDIAC: Heart size is upper normal.? There is no pericardial effusion.Caliber of the thoracic aorta is within normal limits.? There is no significant shift of the interventricular septum. PARTIALLY VISUALIZED UPPERMOST ABDOMEN: No contrast reflux into the intrahepatic IVC.? No adrenal findings.? Spleen size normal. OSSEOUS: No significant osseous lesions.. IMPRESSION: 1. Positive study for bilateral lower lobe acute pulmonary emboli..No evidence of pulmonary infarction at this time.? No pleural effusions.? No infiltrates. 2. No evidence of obvious right heart ventricular strain 3. No evidence of aortic dissection. EXAM:? US LOWER EXTREMITY VENOUS LT CLINICAL HISTORY:? leg pain and swelling? TECHNIQUE:? Left lower extremity venous ultrasound performed using grayscale, color-flow, and spectral Doppler analysis. COMPARISON:? No exams were available for comparison FINDINGS: The left common femoral, femoral and posterior tibial veins demonstrate normal c ompressibility, augmentation, and color Doppler.? There is hypoechoic thrombus seen extending from the peroneal veins into the popliteal vein.? It measures 30 cm in length.? There is thrombus seen in the greater saphenous vein measuring approximately 25 cm long.? It is 3.3 cm distal to the saphenofemoral junction.? The saphenofemoral junction is unremarkable.? There is no evidence of a Avalos cyst.? The soft tissues are unremarkable. IMPRESSION: 1. DVT from the popliteal vein into the peroneal veins. 2. Superficial thrombophlebitis. 3. Results of this exam have been verbally communicated with provider.? Labs Result diagrams: 11/03/21 06:15 11/03/21 06:15 Labs: Laboratory Results - last 24 hr 11/02/21 11/02/21 11/02/21 16:46 16:46 16:46 WBC 10.85 H RBC 5.69 Hgb 18.6 H Hct 53.5 H MCV 94 MCH 32.7 MCHC 34.8 RDW 14.2 H Plt Count 202 MPV 9.4 Immature Gran % 1.6 Neutrophils % 88.5 Lymphocytes % 5.7 Monocytes % 3.5 Eosinophils % 0.1 Basophils % 0.6 Nucleated RBC % 0.2 Absolute Neutrophils 9.60 H Absolute Lymphocytes 0.62 L Absolute Monocytes 0.38 Absolute Eosinophils 0.01 Absolute Basophils 0.07 PT INR APTT D-Dimer 2064 H Sodium 138 Potassium 4.2 Chloride 104 Carbon Dioxide 23.2 Anion Gap 10.8 BUN 20 H Creatinine 0.9 Estimated GFR/1.73 m2 >= 60.00 Glucose 126 H Calcium 8.7 Magnesium 1.9 Total Bilirubin 1.0 AST 17 ALT 73 H Alkaline Phosphatase 40 L Troponin I < 50 NT-Pro-B Natriuret Pep 105 Total Protein 6.6 Albumin 3.2 L COVID-19 Source SARS-CoV-2 (PCR) 11/02/21 11/02/21 11/02/21 18:56 19:00 19:30 WBC RBC Hgb Hct MCV MCH MCHC RDW Plt Count MPV Immature Gran % Neutrophils % Lymphocytes % Monocytes % Eosinophils % Basophils % Nucleated RBC % Absolute Neutrophils Absolute Lymphocytes Absolute Monocytes Absolute Eosinophils Absolute Basophils PT Cancelled 10.0 INR Cancelled 1.0 APTT Cancelled 21.1 D-Dimer Sodium Potassium Chloride Carbon Dioxide Anion Gap BUN Creatinine Estimated GFR/1.73 m2 Glucose Calcium Magnesium Total Bilirubin AST ALT Alkaline Phosphatase Troponin I NT-Pro-B Natriuret Pep Total Protein Albumin COVID-19 Source Nasal/Nares SARS-CoV-2 (PCR) Negative Last Vital Signs Temp 36.4 C L 11/02/21 17:11 Pulse 78 11/02/21 21:00 Resp 16 11/02/21 17:11 BP 155/97 H 11/02/21 17:16 Pulse Ox 95 11/02/21 17:11 PAWSS Have you Been Recently Intoxicated or Drunk Within the Last 30 days?: No Have you Ever Experienced Previous Episodes of Alcohol Withdrawal?: No Have you ever Experienced Withdrawal Seizures?: No Have you ever Experienced Delirium Tremens(DT)s?: No Have you ever undergone Alcohol Rehabilitation Treatment (i.e, inpt ot outpatient treatment programs)?: No Have you ever Experienced Blackouts?: No Have you ever Combined Alcohol with other Downers within the last 90 days?: No Have you ever Combined Alcohol with any other Substance of Abuse during the last 90 days?: No Positive Blood Alcohol level on Presentation? [PCS.BAL]: No Evidence of Increased Autonomic Activity (i.e. HR>120, tremor, sweating, agitation, nausea)?: No Result: 0
[2021-11-02] MEDS: Metoprolol 50 MG TAB PO (22:22)
[2021-11-02] MEDS: Normal Saline 1,000 ML 125 ML IV (22:22)
[2021-11-03] VITALS: PULSE 68
[2021-11-03 02:58] VITALS: BP 170/110; PULSE 62; RESP 16; TEMP 36.2; O2SAT 96
[2021-11-03] MEDS: Normal Saline 1,000 ML 125 ML IV (06:03)
[2021-11-03] MEDS: Metoprolol 50 MG TAB PO (06:03)
[2021-11-03 06:48] LABS: Absolute Basophil Count 0.04 10^3/uL (0.0-0.2); Absolute Eosinophil Count 0.06 10^3/uL (0.0-0.7); Absolute Lymphocyte Count 2.06 10^3/uL (1.2-3.4); Absolute Neutrophil Count 5.48 10^3/uL (1.2-6.7); Basophils % 0.5; Eosinophils % 0.7; HCT 49.2 % (40.0-50.0); HGB 17.2 g/dL (13.5-17.5); Immature Grans % 1.2; MCV 94 fL (80-95); MPV 9.5 fL (8.0-11.0); Monocytes % 6.1; Neutrophils % 66.5; Platelet Count 159 10^3/uL (130-400); RBC 5.21 10^6/uL (4.36-5.78); RDW 13.8 % (11.8-14.1); RDW-SD 48.5 fL; WBC 8.24 10^3/uL (4.4-10.8)
[2021-11-03 07:00] VITALS: PULSE 61
[2021-11-03 07:11] LABS: ALT 54 U/L (16-63); AST 15 U/L (15-37); Albumin 2.6 g/dL (3.4-5.0); Alkaline Phosphatase 33 U/L (46-116); Anion Gap 9.2 mmol/L (3-11); BUN 16 mg/dL (7-18); CO2 24.8 mmol/L (21.0-32.0); CREATININE 0.7 mg/dL (0.70-1.30); Calcium 8.1 mg/dL (8.5-10.1); Chloride 107 mmol/L (98-107); Glucose 87 mg/dL (74-106); Potassium 3.8 mmol/L (3.5-5.1); Sodium 141 mmol/L (136-145); Total Protein 5.4 g/dL (6.4-8.2)
[2021-11-03 07:38] VITALS: BP 175/104; PULSE 60; RESP 18; TEMP 37.1; O2SAT 96
[2021-11-03] MEDS: predniSONE 20 MG TAB PO (08:54)
[2021-11-03] MEDS: Apixaban 5 MG TAB 10 MG PO (08:54)
[2021-11-03] MEDS: Lisinopril 20 MG TAB PO (08:55)
[2021-11-03] MEDS: amLODIPine 5 MG TAB 10 MG PO (08:55)
[2021-11-03] MEDS: Simvastatin 20 MG TAB PO (08:56)
[2021-11-03] MEDS: Aspirin E.C. 81 MG TABEC PO (08:56)
--- NOTE | 2021-11-03 10:07 | DSE_ITS ---
Date of service: 11/03/21 Time of Service: 10:08 DS: Diagnosis Discharge Diagnosis (1) Bilateral pulmonary embolism: Status: Acute (2) DVT (deep venous thrombosis): Status: Acute Discharge Plan Disposition Patient Disposition: HOME Condition: Stable Discharge Details Reason For Visit: Bilateral Pulmonary Embolism,Left LE DVT Admit Date/Time: 11/02/21 19:48 Admit Provider: Rene Gregorio Attending Provider: Rene Gregorio Primary Care Provider: Victor M Hernandez Hospital Course Hospital Course: This is a 61-year-old male patient with a 3-month history of headache and fatigue who is obese with chronic secondary polycythemia which is not being treated.? Because of his worsening left leg discomfort over the last 2 weeks the patient presented to the ED for evaluation.? He was found to have a DVT in his left lower extremity was unprovoked other than being obese with polycythemia.? There was no trauma.? He mostly had swelling in his lower extremity on the left more than right but this is more chronic.? Discomfort over the inside of his left calf and lower thigh without knee swelling was of concern.? In the ED he was found to have clot burden in bilateral lung pulmonary arteries but no compromise in cardiovascular status.? He was initiated on Eliquis treatment dose of 10 twice daily which will continue for 1 week and then can be converted to 5 mg twice daily long-term he should have further evaluation for provocation including family history and testing.? If no provocation is found patient may be on lifelong Eliquis.? He needs to be more aggressive with weight control and treatment of his polycythemia with therapeutic phlebotomy at least.? He is a full code.? Past history is also significant for daily alcohol use though he does not binge drink or become intoxicated.? He is overweight and has never been tested for obstructive sleep apnea which may be at play with his obesity and hypertension.? This also could explain his secondary polycythemia. he has remained hemodynamically stable. echocardiogram completed and results pending at discharge to be discussed at [facility] appointment. discharged to home with no services. discussed with DR Ferguson. Home Meds and New Rx's Prescriptions: New Eliquis 5 mg Tablet 10 mg PO BID Qty: 60 0RF metoprolol succinate [Toprol XL] 50 mg tablet extended release 24 hr 50 mg PO DAILY Qty: 30 0RF Continued lisinopril 20 mg tablet 20 mg PO DAILY simvastatin 20 mg tablet 20 mg PO DAILY sildenafil [Viagra] 50 mg tablet 50 mg PO DAILY PRN Rx Instructions: administer 30 minutes to 4 hours before activity amlodipine 5 mg tablet 10 mg PO DAILY aspirin [Aspir-81] 81 MG tablet,delayed release (DR/EC) 81 mg PO DAILY metoprolol tartrate 100 MG tablet 100 mg PO DAILY mycophenolate mofetil 250 mg capsule 2 cap PO 2XD Label Comments: TAKE 2 CAPSULES BY MOUTH TWO TIMES A DAY prednisone 20 mg tablet 1 tab PO 1XD Label Comments: TAKE THREE TABLETS BY MOUTH EVERY DAY Discharge Instructions Instructions: Pulmonary Embolism (DC) Additional Instructions: take your eliquis as directed. 10 mg twice daily for 7 days, then 5 mg twice daily your metoprolol was increased to 150 mg daily. continue to monitor your blood pressure and report to your doctor. your echocardiogram results will be reviewed at your follow up appointment Stand Alone Forms: Nursing Discharge Form Referrals: Victor M Hernandez [Primary Care Provider] - 11/11/21 1:40 pm Activity:: Activity as Tolerated Equipment/Supplies:: No Equipment Needed Diet:: As Tolerated Discharge Orders Discharge Orders: Discharge Order (Routine); Ordered 11/03/21 Ordered By: Bibi Montesinos Discharge Data Discharge Date/Time-TO BE ENTERED AT DEPARTURE: 11/03/21 12:53 DS: Summary Time Spent with Patient providing and/or coordinating discharge services: Less than 30 minutes Status at Discharge Functional status at discharge: independent ambulation Overall status at discharge: patient is progressing back to baseline Mental Status: mental status grossly normal Speech and Movement: speech and movement normal Mood: congruent mood Affect: normal affect Exam Const General: cooperative, healthy appearing, comfortable and no acute distress Orientation: alert, awake and oriented x3 Neck Neck: normal visual inspection, full ROM and supple Resp Effort & Inspection: normal respiratory effort and able to speak in complete sentences Auscultation: clear to auscultation bilaterally Cardio Jugular venous pressure: no JVD Palpation: normal PMI Rate: regular rate Rhythm: regular rhythm Heart Sounds: no murmurs Skin General skin exam: no rashes or lesions noted Neuro General: patient alert, patient awake, patient oriented x3, tone normal and moves all extremities Extrem General: capillary refill normal, normal exam except as noted and pedal edema bilaterally pitting and 1+ Psych Mental Status: mental status grossly normal Speech and Movement: speech and movement normal Mood: congruent mood Affect: normal affect DS: Data Vitals/I&O Vitals and I&O: Vital Signs Temperature 37.1 C 11/03/21 07:38 Temperature Source Tympanic 11/03/21 07:38 Pulse 60 11/03/21 07:38 Pulse Rhythm Regular 11/03/21 05:45 Respiratory Rate 18 11/03/21 07:38 Respiratory Effort 11/03/21 05:45 Respiratory Depth Normal 11/03/21 05:45 Respiratory Pattern Normal 11/03/21 05:45 Blood Pressure 175/104 H 11/03/21 07:38 Blood Pressure Position Sitting 11/02/21 15:12 Pulse Oximetry 96 11/03/21 07:38 Oxygen Delivery Method Room Air 11/03/21 07:38 Oxygen Flow Rate 0 11/03/21 07:38 Pain Level 0 11/03/21 07:38 Comment 11/03/21 07:38 Intake & Output 11/02/21 11/02/21 11/03/21 11:59 23:59 11:59 Intake Total 960.417 / 960.417 Balance 960.417 / 960.417 Weight 111.13 kg 112.3 kg Intake: IV 960.417 / 960.417 Other: Urine Color Yellow Yellow Urine Appearance Clear Clear Urine Odor None Voiding Methods Toilet Toilet Data Completed and Pending Labs on day of discharge: Labs from last 24 hours 11/03/21 11/03/21 11/02/21 06:15 06:15 19:30 WBC 8.24 RBC 5.21 Hgb 17.2 Hct 49.2 MCV 94 MCH 33.0 MCHC 35.0 RDW 13.8 Plt Count 159 MPV 9.5 Immature Gran % 1.2 Neutrophils % 66.5 Lymphocytes % 25.0 Monocytes % 6.1 Eosinophils % 0.7 Basophils % 0.5 Nucleated RBC % 0.0 Absolute Neutrophils 5.48 Absolute Lymphocytes 2.06 Absolute Monocytes 0.50 Absolute Eosinophils 0.06 Absolute Basophils 0.04 PT 10.0 INR 1.0 APTT 21.1 D-Dimer Sodium 141 Potassium 3.8 Chloride 107 Carbon Dioxide 24.8 Anion Gap 9.2 BUN 16 Creatinine 0.7 Estimated GFR/1.73 m2 >= 60.00 Glucose 87 Calcium 8.1 L Magnesium Total Bilirubin 1.0 AST 15 ALT 54 Alkaline Phosphatase 33 L Troponin I NT-Pro-B Natriuret Pep Total Protein 5.4 L Albumin 2.6 L COVID-19 Source SARS-CoV-2 (PCR) 11/02/21 11/02/21 11/02/21 19:00 18:56 16:46 WBC RBC Hgb Hct MCV MCH MCHC RDW Plt Count MPV Immature Gran % Neutrophils % Lymphocytes % Monocytes % Eosinophils % Basophils % Nucleated RBC % Absolute Neutrophils Absolute Lymphocytes Absolute Monocytes Absolute Eosinophils Absolute Basophils PT Cancelled INR Cancelled APTT Cancelled D-Dimer 2064 H Sodium Potassium Chloride Carbon Dioxide Anion Gap BUN Creatinine Estimated GFR/1.73 m2 Glucose Calcium Magnesium Total Bilirubin AST ALT Alkaline Phosphatase Troponin I NT-Pro-B Natriuret Pep Total Protein Albumin COVID-19 Source Nasal/Nares SARS-CoV-2 (PCR) Negative 11/02/21 11/02/21 16:46 16:46 WBC 10.85 H RBC 5.69 Hgb 18.6 H Hct 53.5 H MCV 94 MCH 32.7 MCHC 34.8 RDW 14.2 H Plt Count 202 MPV 9.4 Immature Gran % 1.6 Neutrophils % 88.5 Lymphocytes % 5.7 Monocytes % 3.5 Eosinophils % 0.1 Basophils % 0.6 Nucleated RBC % 0.2 Absolute Neutrophils 9.60 H Absolute Lymphocytes 0.62 L Absolute Monocytes 0.38 Absolute Eosinophils 0.01 Absolute Basophils 0.07 PT INR APTT D-Dimer Sodium 138 Potassium 4.2 Chloride 104 Carbon Dioxide 23.2 Anion Gap 10.8 BUN 20 H Creatinine 0.9 Estimated GFR/1.73 m2 >= 60.00 Glucose 126 H Calcium 8.7 Magnesium 1.9 Total Bilirubin 1.0 AST 17 ALT 73 H Alkaline Phosphatase 40 L Troponin I < 50 NT-Pro-B Natriuret Pep 105 Total Protein 6.6 Albumin 3.2 L COVID-19 Source SARS-CoV-2 (PCR) PFSH All Active Problems (Updated 11/03/21 @ 12:49 by Rene Gregorio) Bilateral pulmonary embolism (Acute) DVT (deep venous thrombosis) (Acute) Arthritis of right glenohumeral joint (Acute) Arthritis of left glenohumeral joint (Acute) Femoroacetabular impingement of right hip (Acute) Femoroacetabular impingement of left hip (Acute) Medical History Bilateral tinnitus Depressive disorder Hyperglycemia Hyperlipidemia Impotence Normal colonoscopy Obesity Polymyalgia rheumatica Primary gout Secondary polycythemia Spinal stenosis of lumbar region Surgical History Hx of colonoscopy (~02/26/21) Social History Smoking/Tobacco Use Status: Never Smoking risk assessment performed?: Yes Alcohol Intake: current Alcohol Intake frequency: a few times a week Alcohol type: beer and hard liquor Drug use: Never Substance use type: does not use Do you feel safe at home: Yes Do you feel safe in your relationship?: Yes
[2021-11-03 11:29] VITALS: BP 167/95; PULSE 61; RESP 16; TEMP 36.2; O2SAT 96
[2021-11-03 12:52] VITALS: PULSE 68
== END 2021-11-03 12:53 | disposition home or self-care (01) ==
LOC: ER 15:34 → MS 20:50
PROVIDERS: Admitting Provider Family Medicine; Emergency Provider Nurse Practitioner Family; PCP Neuromusculoskeletal Medicine & OMM; Visit Provider Family Medicine
DX: I26.99 Other pulmonary embolism without acute cor pulmonale (principal); I82.452 Acute embolism and thrombosis of left peroneal vein; I82.432 Acute embolism and thrombosis of left popliteal vein; I82.4Y2 Acute embolism and thrombosis of unspecified deep veins of left proximal lower extremity; D75.1 Secondary polycythemia; E66.9 Obesity, unspecified; Z68.35 Body mass index [BMI] 35.0-35.9, adult; I10 Essential (primary) hypertension; R53.83 Other fatigue; R51.9 Headache, unspecified; Z79.899 Other long term (current) drug therapy; Z79.82 Long term (current) use of aspirin
CPT/HCPCS: 36415; 71275; 80053; 87635; 93005; 96360; 96361; 99285; 83735; 83880; 84484; 85025; 85379; 85610; 85730; 93010; 93306; 93971; 99217; 99220; G0378; J3490; J7512; J7517